=== PATIENT | male | born 1950 | race Caucasian/White ===

== ENCOUNTER 2020-12-11 13:35 | Observation (INO) | payer MEDICARE, OTHER ==
[~2020-12-11] VITALS: Ht 188 cm; Wt 103.7 kg
[~2020-12-11 13:35] MED LIST: ACET500T68 PO; ASPI-482 PO; ATOR20TA58 PO; DILT240C2 PO; DILT60TA PO; ESOM40CA PO; FEXO180T81 PO; IBUP800T19 PO; IPRA0.2S5 IH; IPRA0.2S5 NEB; IPRA12.9 IH; METO25TA2 PO; TAMS0.4C2 PO; TAMS0.4C97 PO
--- NOTE | 2020-12-11 14:05 | PHYS DOC ---
Past History Past Medical History: Asthma, GERD, High Cholesterol, Hypertension, Other Past Surgical History: Other Additional Past Surgical Histo: nose and knee Alcohol Use: Heavy Drug Use: None Adult General Chief Complaint Chief Complaint: CHEST PAIN HPI HPI Patient is a 69-year-old male who presents to the emergency department with complaints of left arm discomfort that started at approximately 730 this morning while he was awake laying in his bed. Patient states he had intermittent chest pains that would last only seconds on the left side of his chest. Patient denies any chest palpitations, nausea, vomiting, diarrhea, or abdominal pain. Patient denies any shortness of breath, chest congestion, nasal congestion. Patient states that his chest pain did not radiate, felt like sharp stabbing pains that lasted only seconds. Patient states his left arm discomfort he rated at a 5/10 on a 1-10 pain scale was consistent until just prior to arrival. Patient associates the relief of his left arm discomfort from taking one of his 's sublingual nitroglycerin approximately 20 minutes prior to arrival to the ER today. Patient reports he just started wearing a 4-week cardiac event monitor ordered by Dr. Durham for 2 episodes of near syncope and diaphoresis with shortness of breath over the past month. Patient states he had a negative cardiac stress test 10 years ago, and has had no cardiac problems since then. Patient states he has a cardiac echo scheduled for 04 January. Patient reports he takes a daily 81 mg aspirin in the morning which he took this morning. Patient reports nitroglycerin is not on his medication list, this was his 's medication. Patient denies any increased thirst or increased urination, denies rashes of his skin, denies any near syncopal episodes, any neurological changes. Patient states he is now symptom-free and pain-free, stating if he felt like this at home he would not have considered coming into the emergency department. Patient reports a past medical history of hypertension, chest palpitations, and urinary flow problems, patient states he has had a recent normal PSA and has not been diagnosed with any prostate problems. Review of Systems Review of Systems 14 body systems of review of systems have been reviewed. See HPI for pertinent positives and negative responses, otherwise all other systems are negative, nonpertinent or noncontributory. Current Medications Current Medications Patient reports taking Flomax twice daily, Coreg twice daily, 81 mg aspirin in the morning, 6.25 mg chlorthalidone, Lipitor 20 mg nightly, vitamin D3 daily, fish oil supplement daily, saw palmetto supplement daily. Allergies Allergies Allergies Coded Allergies Type Severity Reaction Last Updated Verified No Known Drug Allergies 05/06/16 No Physical Exam Physical Exam Constitutional: Well developed, well nourished, no acute distress, non-toxic appearance. HENT: Normocephalic, atraumatic, bilateral external ears normal, oropharynx moist, no oral exudates, nose normal. Eyes: PERRLA, EOMI, conjunctiva normal, no discharge. Neck: Normal range of motion, no tenderness, supple, no stridor. Cardiovascular:Heart rate regular rhythm, no murmur, heart sounds S1-S2 consultation. Lungs & Thorax: Bilateral breath sounds clear to auscultation all lung torres. Abdomen: Bowel sounds normal, soft, no tenderness, no masses, no pulsatile masses. Skin: Warm, dry, no erythema, no rash. Back: No tenderness, no CVA tenderness. Extremities: No tenderness, no cyanosis, no clubbing, ROM intact, no edema. Neurologic: Alert and oriented X 3, normal motor function, normal sensory function, no focal deficits noted. Psychologic: Affect normal, judgement normal, mood normal. Current Patient Data Vital Signs Vital Signs Date Time Temp Pulse Resp B/P (MAP) Pulse Ox O2 Delivery O2 Flow Rate FiO2 12/11/20 13:46 97.9 82 18 151/87 (108) 96 Lab Results Laboratory Tests Test 12/11/20 13:43 White Blood Count 5.9 x10^3/uL Red Blood Count 5.46 x10^6/uL Hemoglobin 14.7 g/dL Hematocrit 46.1 % Mean Corpuscular Volume 84 fL Mean Corpuscular Hemoglobin 27 pg Mean Corpuscular Hemoglobin Concent 32 g/dL Red Cell Distribution Width 15.2 % Platelet Count 218 x10^3/uL Neutrophils (%) (Auto) 57 % Lymphocytes (%) (Auto) 29 % Monocytes (%) (Auto) 11 % Eosinophils (%) (Auto) 3 % Basophils (%) (Auto) 1 % Neutrophils # (Auto) 3.4 x10^3uL Lymphocytes # (Auto) 1.7 x10^3/uL Monocytes # (Auto) 0.6 x10^3/uL Eosinophils # (Auto) 0.2 x10^3/uL Basophils # (Auto) 0.1 x10^3/uL Sodium Level 140 mmol/L Potassium Level 4.0 mmol/L Chloride Level 104 mmol/L Carbon Dioxide Level 30 mmol/L Anion Gap 6 Blood Urea Nitrogen 16 mg/dL Creatinine 0.8 mg/dL Estimated GFR (Cockcroft-Gault) 95.8 BUN/Creatinine Ratio 20 Glucose Level 70 mg/dL Calcium Level 9.3 mg/dL Magnesium Level 2.1 mg/dL Total Bilirubin 0.3 mg/dL Aspartate Amino Transf (AST/SGOT) 25 U/L Alanine Aminotransferase (ALT/SGPT) 53 U/L Alkaline Phosphatase 70 U/L Creatine Kinase 126 U/L Creatine Kinase MB (Mass) 0.8 ng/mL Creatine Kinase MB Relative Index 0.6 % Troponin I Quantitative < 0.017 ng/mL Total Protein 7.0 g/dL Albumin 3.7 g/dL Albumin/Globulin Ratio 1.1 EKG EKG EKG performed at 1342 by house respiratory therapy staff, normal sinus rhythm wi thout ectopy heart rate 73 bpm, [place] interval 0.156, QTc interval 0.436, no acute STEMI, no ACS, no acute ischemia appreciated, EKG interpreted by ED attending physician Dr. Diehl. Radiology/Procedures Radiology/Procedures PATIENT: OLE HOANG ACCOUNT: [id number] : 1950 LOCATION: ER AGE: 69 SEX: M EXAM STATUS: PRE ER ORD. PHYSICIAN: NAKUL LAMAS APRN REASON: CHEST PAIN, PT HAS HEART MONITOR ON THAT HE IS NOT TO TAKE OFF PROCEDURE: CHEST PA & LATERAL Chest, PA and Lateral: Technique: PA and lateral views of the chest were obtained. History: Chest pain. Comparison: None. Findings: The heart and pulmonary vasculature appear within normal limits. The lungs are clear. The pleural margins are clear. Impression: No acute chest process is seen. Electronically signed by: Baldo Treviño MD (12/11/2020 2:22 PM) [id number] DICTATED AND SIGNED BY: BALDO TREVIÑO MD DATE: 12/11/20 1420 CC: NAKUL LAMAS APRN; DORIAN DURHAM MD ~MTH0 0 Heart Score HEART Score for Chest Pain: HEART Score for Chest Pain Response (Comments) Value History Moderately Suspicious 1 ECG Normal 0 Age > 65 2 Risk Factors 1 or 2 Risk Factors 1 Troponin < Normal Limit 0 Total 4 Risk Factors: Risk Factors: DM, Current or recent (<one month) smoker, HTN, HLP, family history of CAD, obesity. Risk Scores: Risk Factors: DM, Current or recent (<one month) smoker, HTN, HLP, family history of CAD, obesity. Course & Med Decision Making Course & Med Decision Making Pertinent Labs and Imaging studies reviewed. (See chart for details) 69-year-old male, vital signs reviewed, presents emergency department complaining of left arm discomfort with intermittent chest pain. Patient's physical exam was unremarkable. Patient had taken his one of his 's nitroglycerin sublingual tablets 20 minutes prior to arrival. Related to patient's history and complaint of present illness, a cardiopulmonary work-up was initiated in the ED. Awaiting results at this time ED work-up for cardiopulmonary process negative. However patient's HEART score equals 4. Related to patient's current investigation of cardiac problems related to his near syncopal episodes with diaphoresis and shortness of breath and current 28-day Holter monitor study in which she is 10 days into, recommen ded admission to telemetry unit to rule out myocardial infarction, STEMI, cardiac process via serial cardiac enzymes. Patient was amenable to this plan. Discussed patient with [facility] physician Dr. Ko who agreed to accept patient under observation status to the telemetry unit at [facility] for the diagnosis of chest pain. Dr. Ko has assumed patient care at this time. Dragon Disclaimer Dragon Disclaimer This electronic medical record was generated, in whole or in part, using a voice recognition dictation system. Departure Departure: Impression: Primary Impression: Chest pain, rule out acute myocardial infarction Disposition: ADMITTED INPT THIS HOSP Admitting Physician: Evangelist Ko (Observation status to telemetry unit diagnosis chest pain rule out LA under Dr. Ko) Condition: STABLE Referrals: DORIAN DURHAM MD (PCP) NAKUL LAMAS APRN Dec 11, 2020 14:05
[2020-12-11 14:13] LABS: CALCIUM 9.3 mg/dL (8.5-10.1); CREATININE 0.8 mg/dL (0.7-1.3); GFR 95.8
[2020-12-11 14:15] LABS: BASO # 0.1 x10^3/uL (0.0-0.2); BASO % 1 % (0-3); EOS # 0.2 x10^3/uL (0.0-0.7); EOS % 3 % (0-3); HEMATOCRIT 46.1 % (39.0-53.0); HEMOGLOBIN 14.7 g/dL (13.0-17.5); LYMPH # 1.7 x10^3/uL (1.0-4.8); LYMPH % 29 % (24-48); MEAN CORPUSCULAR HEMOGLOBIN 27 pg (25-35); MEAN CORPUSCULAR HGB CONC 32 g/dL (31-37); MEAN CORPUSCULAR VOLUME 84 fL (79-100); MONO # 0.6 x10^3/uL (0.0-1.1); MONO % 11 % (0-9); NEUT # 3.4 x10^3uL (1.8-7.7); NEUT % 57 % (31-73); PLATELET COUNT 218 x10^3/uL (140-400); RED BLOOD COUNT 5.46 x10^6/uL (4.30-5.70); RED CELL DISTRIBUTION WIDTH 15.2 % (11.5-14.5); WHITE BLOOD COUNT 5.9 x10^3/uL (4.0-11.0)
--- NOTE | 2020-12-11 14:20 | EKG ---
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
--- NOTE | 2020-12-11 14:25 | RAD ---
Chest, PA and Lateral: Technique: PA and lateral views of the chest were obtained. History: Chest pain. Comparison: None. Findings: The heart and pulmonary vasculature appear within normal limits. The lungs are clear. The pleural ma rgins are clear. Impression: No acute chest process is seen. Electronically signed by: Baldo Treviño MD (12/11/2020 2:22 PM) [id number]
[2020-12-11 14:28] LABS: ALBUMIN 3.7 g/dL (3.4-5.0); ALBUMIN/GLOBULIN RATIO 1.1 (1.0-1.7); MAGNESIUM 2.1 mg/dL (1.8-2.4); TOTAL BILIRUBIN 0.3 mg/dL (0.2-1.0)
[2020-12-11 16:00] VITALS: BP 144/78
[2020-12-11] MEDS ORDERED: OMEG-57 PO (16:37)
[2020-12-11] MEDS ORDERED: CHLO25TA9 PO (16:37)
[2020-12-11] MEDS ORDERED: CARV25TA PO (16:37)
[2020-12-11] MEDS ORDERED: LOSA100T2 PO (16:37)
[2020-12-11] MEDS ORDERED: MV-M1TAB7 PO (16:37)
--- NOTE | 2020-12-11 16:40 | NUR ---
The patient, OLE HOANG, 69 y/o, M admitted by MARLI IVY MD, was given written information regarding hospital policies, unit procedures and contact persons. Valuables were checked and VS taken please see chart.
[2020-12-11 19:55] VITALS: BP 128/79
[2020-12-11 21:55] VITALS: BP 123/77
--- NOTE | 2020-12-12 02:06 | NUR ---
Nursing note: Pt watched TV and slept through much of shift. No reports of chest or arm pain, eager to go home in AM. VSS and as noted in chart, NSR on tele.
[2020-12-12 06:13] VITALS: BP 108/70
--- NOTE | 2020-12-12 09:21 | HP ---
ADMIT DATE: 12/11/2020 ATTENDING PHYSICIAN: Dr. Ivy. CHIEF COMPLAINT: Chest pain. HISTORY OF PRESENT ILLNESS: The patient is a 69-year-old gentleman admitted through the ED with left arm discomfort and chest intermittent pain lasting for a few seconds. No palpitations in the midst of a 28-day Holter monitor through cardiovascular consultants at [facility]. He had 2 episodes of near syncope, which appears to be adrenaline surges. His risk factors are minimal. He was admitted to the hospital for serial enzymes and evaluation. PAST MEDICAL HISTORY: Significant for gastroesophageal reflux disease, hypertension, cholesterol, and asthma. He is a nonsmoker, but he drinks scotch at night, several cocktails at night. He also drinks a lot of coffee. No nonsteroidal use. FAMILY HISTORY: Mom of complications of heart disease. Father of Alzheimer's disease in his 70s. CURRENT MEDICATIONS: Reviewed. He takes aspirin, Lipitor, Coreg, chlorthalidone, losartan, omega 3 fish oil and Flomax. ALLERGIES: He has no known drug allergies. REVIEW OF SYSTEMS: Significant for the alcohol use. No COVID exposure. No fevers, chills, cough or congestion. All other systems reviewed and turned to be negative. PHYSICAL EXAMINATION: GENERAL: When I saw him, this is a pleasant gentleman appearing younger than stated age. INITIAL VITAL SIGNS: Showed a blood pressure of 123/77 mmHg, pulse 70 and regular, temperature normal. He was afebrile. Oxygen saturation 94% on room air. HEENT: Head is without trauma. Pupils are reactive. Sclerae is nonicteric. Oropharynx clear. NECK: Supple, No bruits. No thyromegaly or stridor. LUNGS: Entirely clear to auscultation. CARDIOVASCULAR: Showed regular heart tones. Normal S1, S2. He had no murmurs, gallops or rubs. Peripheral pulses are palpable and full. ABDOMEN: Soft, scaphoid, nontender, no organomegaly. Bowel sounds are normoactive. EXTREMITIES: Show no cyanosis or edema. NEUROLOGIC: Focally intact. Furnace Brazer symmetrical. Speech is intact. There are no focal deficits. SKIN: No lesions. Warm and dry. PERTINENT LABORATORY STUDIES: Admission hemoglobin was 14.7 g/dL, white count 5900. Electrolytes within normal range. Transaminases are normal. The first set of cardiac enzymes showed no evidence of coronary ischemia. EKG is nondiagnostic. Chest x-ray showed no acute disease process, otherwise unremarkable. ASSESSMENT: 1. A 69-year-old gentleman with atypical chest pain, most likely due to reflux as a combination of his alcohol and caffeine use. 2. Rule out coronary ischemia. 3. In the midst of a cardiac investigation, he has a 28-day Holter monitor in place. 4. Hypertension. 5. Hyperlipidemia. PLAN: 1. Observation status. 2. Serial enzymes. 3. I recommended [id number] Prilosec. 4. Continue other home meds. MARLI IVY MD DR: KENYETTA/corrine JOB#: [id number] / [id number] DORIAN Vu MD
--- NOTE | 2020-12-12 09:23 | DS ---
DATE OF DISCHARGE: 12/12/2020 ATTENDING PHYSICIAN: Marli Ivy MD FINAL DISCHARGE DIAGNOSES: 1. Atypical chest pain, coronary ischemia ruled out. 2. Hypertension. 3. Hyperlipidemia. 4. Essential hypertension. 5. Gastroesophageal reflux disease. HISTORY AND PHYSICAL: This pleasant 69-year-old gentleman was admitted with atypical chest pain, left-sided, lasting for a brief period of time. He drinks alcohol and a lot of caffeine. He was admitted for coronary ischemia ruled out. PHYSICAL EXAMINATION: Please see the dictated note. PERTINENT LABORATORY AND X-RAY STUDIES: EKG and chest x-ray were nondiagnostic. Cardiac enzymes serially were drawn and were entirely normal without any coronary ischemia. CBC, chemistry panel and liver panel, all within normal range. COURSE IN THE HOSPITAL: The patient was admitted. He had serial enzymes. Pain subsided. I recommended some [id number] Prilosec daily. I explained to him that his pain is noncardiac and related to his lifestyle. I recommended cutting back on his evening ingestion of scotch and his coffee. There are no changes on meds. He will follow up and complete the Holter monitor. He is in the midst of it, day 10 of a 28-day Holter monitor. He is discharged home with recommendations for [id number] Prilosec. He will continue his Coreg, Flomax, Lipitor, omega 3 fish oil, losartan, aspirin, chlorthalidone, multivitamin, dose is unchanged. Once again, he will follow up with his primary care physician and beauty culture teacher, Dr. Barnett at [facility]. The patient was then discharged from our hospital in stable condition with explicit instructions and followup care. MARLI IVY MD DR: KENYETTA/corrine JOB#: [id number] / [id number] DORIAN Vu MD
--- NOTE | 2020-12-12 09:39 | NUR ---
NURSING NOTE DISCHARGE PT DISCHARGED HOME VIA AMBULATION ACCOMPANIED BY SELF. PT GIVEN WRITTEN AND VERBAL DISCHARGE INSTRUCTIONS. NO CHANGES TO MEDICATION. PT ENCOURAGED TO FOLLOW UP WITH PCP IN 7-10 DAYS OR SOONER IF NEEDED. PT DENIES QUESTIONS. REBECA JOHNSTON.
== END 2020-12-12 09:41 | disposition home or self-care (01) ==
LOC: ER 13:35 → 1 SOUTH 14:45
PROVIDERS: ADMIT Hospitalist; ATTEND Hospitalist
DX: R07.89 Other chest pain (principal); I10 Essential (primary) hypertension; E78.5 Hyperlipidemia, unspecified; K21.9 Gastro-esophageal reflux disease without esophagitis; J45.909 Unspecified asthma, uncomplicated; E78.00 Pure hypercholesterolemia, unspecified; Z79.82 Long term (current) use of aspirin
CPT/HCPCS: 36415; 71046; 80053; 82553; 83735; 84484; 85025; 93005; 99285; G0378; G0379

== ENCOUNTER → 2022-01-30 | Day surgery (SDC) | payer MEDICARE, OTHER ==
[~2022-01-30] MED LIST changes: +ACETAMINOPHEN 500 MG TABLET PO PRN; +BALANCED SALT IRRIG SOLN NO.2 500 ML IO ONE; +BENZONATATE 100 MG CAPSULE. PO PRN; +BRIMONIDINE 0.2% OPHTH SOLUTION 5ML BOTTLE. OD ONE; +CARV25TA PO; +CEFUROXIME OPHTH 4 MG/0.4 ML SYRINGE. OD ONE; +CHLO25TA9 PO; +CHONDROIT-SOD-HYALURONATE KIT. OD ONE; +IBUPROFEN 200 MG TABLET PO PRN; +IPRATRPIUM/ALBUTEROL 0.5/2.5MG 3 ML NEBU. NEB PRN; +IV RINGERS SOLUTION,LACTATED 1,000 ML IV SCH; +LIDO/EPI IN BSS OPHTH 2.7 ML SYRINGE. OD ONE; +LIDOCAINE 2% JELLY 6ML IN APPLICATOR. ONE; +LOSA100T2 PO; +MIDAZOLAM HCL PF 2 MG/2 ML VIAL. IV ONE; +MIDAZOLAM HCL PF 2 MG/2 ML VIAL. ONE; +MV-M1TAB7 PO; +OMEG-57 PO; +ONDANSETRON PF 4 MG/2 ML VIAL. IV PRN; +PHENYLEPHRINE 10% OPHTH SOLUTION 5ML BOTTLE. OD PRN; +POVIDONE-IODINE 5% OPHTH SOLUTION 30ML BOTTLE. OD ONE; +POVIDONE-IODINE 5% OPHTH SOLUTION 30ML BOTTLE. OD PRN; +PROPARACAINE 0.5% OPHTH SOLUTION 15ML BOTTLE. OD ONE; +PROPARACAINE 0.5% OPHTH SOLUTION 15ML BOTTLE. OD PRN; +prednisoLONE ACETATE 1% OPHTH SUSPENSION 5ML BOTTLE. OD ONE
[2022-01-30] MEDS: PHENYLEPHRINE 2.5% OPHTH SOLUTION 2ML BOTTLE. OD SCH ×3 (10:23→10:45)
[2022-01-30] MEDS: KETOROLAC TROMETHAMINE 0.5% OPHTH SOLUTION BOTTLE. OD SCH ×2 (10:23→10:35)
[2022-01-30] MEDS: TROPICAMIDE 1% OPHTH SOLUTION 15ML BOTTLE. OD SCH ×3 (10:23→10:45)
[2022-01-30] MEDS: TOBRAMYCIN 0.3% OPHTH SOLUTION 5ML BOTTLE. OD SCH ×2 (10:24→10:35)
--- NOTE | 2022-01-30 11:45 | PDOC4 ---
Date of Procedure: 01/30/22 PREOP Diagnosis Visually significant cataract: Right Eye OD POSTOP Diagnosis Same PROCEDURE: Phaco w/ posterior chamber IOL: Right Eye OD ANESTHESIA x Deep forniceal periocular 2% Lidocaine jelly Nicolasa/retro bulbar block with 2% Lidocaine with 0.5% Marcaine DESCRIPTION OF PROCEDURE The risks, benefits, and alternatives were discussed with the patient who elected to proceed. Informed consent was obtained in writing and placed in the chart After anesthetizing the eye topically, the patient was taken to the operating room, and the operative eye was prepped and draped in the usual sterile fashion for ocular surgery. A wire lid speculum was placed. A 1-mm clear corneal paracentesis incision was created with the side-port blade at a position three o'clock hours clockwise from the temporal cornea. Then, 1% non-preserved Lidocaine with epinephrine was injected into the anterior chamber followed by viscoelastic. Cotton-tipped applicators were used to stabilize the globe, and a 2.4 mm keratome was used to create a self-sealing incision in clear cornea at the temporal limbus. The Utrata forceps were used to create a continuous curvilinear capsulorrhexis. Balanced saline solution was injected via cannula beneath the capsulorrhexis edge to hydrodissect the lens nucleus and cortex from the lens capsule. The phacoemulsification handpiece and a chopping instrument were then used to remove the lens nucleus. The remaining epinuclear material and cortex were removed with the irrigation/aspiration handpiece. Viscoelastic was used to re-inflate the lens capsule, and the intraocular lens was injected directly into the capsular bag. The corneal wound edges were hydrated with balanced salt solution on a cannula and the irrigation/aspiration handpiece was used to extract the remaining viscoelastic. Cefuroxime 0.1mg/ml was injected into the anterior chamber intracamerally. The wounds were inspected and found to be watertight at an appropriate intraocular pressure. Topical antibiotic drops were placed on the corneal surface. If Yes, Number [] Mission [] Length [] degrees Depth [] microns Toric Lens Mission [] Patch/shield with Maxitrol/Tobradex/Erythromycin ointment: Yes No Co-managed patients/postop examination stable for co-management with referring doctor. EBL EBL: None SPECIMANS COLLECTED Specimens Collected: None DREW OJEDA MD Jan 30, 2022 11:45
[2022-01-30 11:46] VITALS: BP 125/83
== END | disposition home or self-care (01) ==
LOC: SURG 10:02
PROVIDERS: ATTEND Ophthalmology
DX: H25.11 Age-related nuclear cataract, right eye (principal); I10 Essential (primary) hypertension; J44.9 Chronic obstructive pulmonary disease, unspecified; E78.00 Pure hypercholesterolemia, unspecified; K21.9 Gastro-esophageal reflux disease without esophagitis; E66.9 Obesity, unspecified; F41.9 Anxiety disorder, unspecified; Z79.82 Long term (current) use of aspirin; Z72.89 Other problems related to lifestyle; Z98.890 Other specified postprocedural states; Z85.828 Personal history of other malignant neoplasm of skin; Z80.8 Family history of malignant neoplasm of other organs or systems
CPT/HCPCS: 66984; A4657; J2250; V2632

== ENCOUNTER → 2022-03-06 | Outpatient (CLI) | payer MEDICARE, OTHER ==
[2022-01-30 11:46] VITALS: BP 125/83
[~2022-03-06] MED LIST changes: -ACETAMINOPHEN 500 MG TABLET PO PRN; -BALANCED SALT IRRIG SOLN NO.2 500 ML IO ONE; -BENZONATATE 100 MG CAPSULE. PO PRN; -BRIMONIDINE 0.2% OPHTH SOLUTION 5ML BOTTLE. OD ONE; -CEFUROXIME OPHTH 4 MG/0.4 ML SYRINGE. OD ONE; -CHONDROIT-SOD-HYALURONATE KIT. OD ONE; -IBUPROFEN 200 MG TABLET PO PRN; -IPRATRPIUM/ALBUTEROL 0.5/2.5MG 3 ML NEBU. NEB PRN; -IV RINGERS SOLUTION,LACTATED 1,000 ML IV SCH; -LIDO/EPI IN BSS OPHTH 2.7 ML SYRINGE. OD ONE; -LIDOCAINE 2% JELLY 6ML IN APPLICATOR. ONE; -MIDAZOLAM HCL PF 2 MG/2 ML VIAL. IV ONE; -MIDAZOLAM HCL PF 2 MG/2 ML VIAL. ONE; -ONDANSETRON PF 4 MG/2 ML VIAL. IV PRN; -PHENYLEPHRINE 10% OPHTH SOLUTION 5ML BOTTLE. OD PRN; -POVIDONE-IODINE 5% OPHTH SOLUTION 30ML BOTTLE. OD ONE; -POVIDONE-IODINE 5% OPHTH SOLUTION 30ML BOTTLE. OD PRN; -PROPARACAINE 0.5% OPHTH SOLUTION 15ML BOTTLE. OD ONE; -PROPARACAINE 0.5% OPHTH SOLUTION 15ML BOTTLE. OD PRN; -prednisoLONE ACETATE 1% OPHTH SUSPENSION 5ML BOTTLE. OD ONE
--- NOTE | 2022-03-07 09:29 | RAD ---
Exam: XR FOOT_RIGHT 3 VIEWS History: Right foot pain. No known injury. Comparison: None. Findings: Osseous mineralization is normal. No acute fracture or dislocation. Degenerative changes at the inter phalangeal joints. Small vessel Monckeberg vascular calcifications. No aggressive osseous erosive pro cess. No focal soft tissue swelling. Impression: 1. Mild degenerative changes of the interphalangeal joints without acute osseous abnormality in the right foot. Electronically signed by: Eliezer Dyer MD (03/07/2022 8:45 AM) [id number]
== END ==
LOC: RAD 14:52
PROVIDERS: ATTEND Internal Medicine
DX: M19.071 Primary osteoarthritis, right ankle and foot (principal); M25.871 Other specified joint disorders, right ankle and foot
CPT/HCPCS: 73630